=== PATIENT | male | born 1980 | race African-American/Black ===

== ENCOUNTER 2021-11-17 11:13 | Outpatient (CLI) | payer OTHER, SELFPAY | END 2021-11-22 13:50 | disposition home or self-care (01) | PROVIDERS: Family Provider Student in an Organized Health Care Education/Training Program; PCP Student in an Organized Health Care Education/Training Program; Referring Provider Student in an Organized Health Care Education/Training Program; Visit Provider Student in an Organized Health Care Education/Training Program | DX: G43.909 Migraine, unspecified, not intractable, without status migrainosus (principal); M25.569 Pain in unspecified knee; G47.33 Obstructive sleep apnea (adult) (pediatric); M79.2 Neuralgia and neuritis, unspecified | CPT/HCPCS: 95886; 95910 ==

== ENCOUNTER 2023-10-31 10:27 | Day surgery (SDC) | payer OTHER, SELFPAY ==
[2023-10-31 10:50] VITALS: BP 135/90; PULSE 76; RESP 18; TEMP 36.2; O2SAT 99
[2023-10-31] MEDS: LACTATED RINGERS 1,000 ML 42 ML IV (11:03)
--- NOTE | 2023-10-31 11:08 | PM.PREOP ---
Pre-operative Note COVID-19 COVID-19 status: Negative Interval Note History & Physical reviewed/Exam performed by Physician: Yes Changes to H&P: No H&P completed within 30 days and has changed as indicated here:: none ASA Class (for procedural sedation): II
--- NOTE | 2023-10-31 11:09 | PM.OP.EGD ---
Operative Date/Time/Diagnoses Date of procedure: 10/31/23 Pre-op diagnosis: See indication and findings Procedure & Clinicians Study performed: EGD Indications: Chronic cough rule out GERD Surgeon: Stevie Gordillo Procedure Notes Procedure in detail: After informed consent was obtained the patient was placed in the left lateral decubitus position. The video upper scope was placed into the oropharynx and with the patient's help swallowed into the esophagus. The esophagus stomach and duodenum were carefully examined. On withdrawal, retroflexed view the GE junction was performed. Scope was removed. The patient tolerated procedure well. Blood loss none Complications none Sedation mac Findings 1. Normal esophagus 2. Normal stomach 3. Normal duodenum Mr. Claros should neck see Pulmonary about his problems with coughing.
[2023-10-31 11:31] VITALS: BP 127/89; PULSE 79; RESP 12; TEMP 37.1; O2SAT 95
[2023-10-31 11:36] VITALS: BP 129/95; PULSE 78; RESP 12; O2SAT 100
[2023-10-31 11:41] VITALS: BP 132/99; PULSE 74; RESP 15; TEMP 36.6; O2SAT 100
== END 2023-10-31 12:01 | disposition home or self-care (01) ==
PROVIDERS: Family Provider Student in an Organized Health Care Education/Training Program; PCP Student in an Organized Health Care Education/Training Program; Referring Provider Internal Medicine Gastroenterology; Visit Provider Internal Medicine Gastroenterology
PROC: 0DJ08ZZ Inspection of Upper Intestinal Tract, Via Natural or Artificial Opening Endoscopic (ICD-10-PCS; CPT 43235; principal; 2023-10-31 13:30)
DX: R05.3 Chronic cough (principal)
CPT/HCPCS: 43235

== ENCOUNTER 2024-04-26 08:59 | Emergency (ER) | payer OTHER, SELFPAY ==
[2024-04-26 09:24] VITALS: BP 136/94; PULSE 74; RESP 16; TEMP 36.7; O2SAT 100; BMI 36.9
--- NOTE | 2024-04-26 09:42 | PC.NURSE ---
Pt woke up a couple days ago with stiff neck. right side Continued normal ADLs to include working out strenth training. States pain has progressively gotten worse and has spread to R shoulder. He reports radiation down to right hand. right arm feels heavy and has numbness tingling. pain 8/10. has tried heat, ibuprofen, his therapy masasge gun. Pt worsening sleep and pain.
--- NOTE | 2024-04-26 11:13 | ED.EXTPRO ---
HPI - Extremity Problem <Arlen Booth PA-C - Last Filed: 04/26/24 11:52> General Chief complaint: Extremity Problem,Nontraumatic Stated complaint: neck and shoulder px causing Rarm numbness Time Seen by Provider: 04/26/24 11:05 Source: patient Mode of arrival: Family Vehicle History of Present Illness HPI Narrative: This is a 44-year-old generally healthy patient presenting with concern for right arm numbness after he woke up about 3 days ago with pain in the right side of his neck and his right upper shoulder. Patient states that he does do heavy weightlifting and has done so for years, he does not believe he did anything different in his exercise routine or remember any specific injury or pain happening during exercise or any other activities prior to his pain starting. He states he has had somewhat similar symptoms in the past when he was in the and a few different times he says he has woken up and feel like I can not move my neck but had never had numbness affecting his right arm at that time. He feels his function has been normal and his strength has been normal. He states that he has a pain in his right arm that is slightly dull pain feeling-- however most of his pain is in his right upper shoulder. He has tried heat, ice, massage therapy Gun topical [id number] numbing medicine and OTC pain meds with limited improvement. He denies any headache, vision change, one-sided weakness or other symptoms. Related Data Previous Rx's Medication Instructions Recorded baclofen 20 mg tablet 20 mg PO TID 7 days #21 tabs 04/26/24 lidocaine 5 % topical ointment 1 applic topical TID PRN pain #50 04/26/24 grams prednisone 20 mg tablet 40 mg (2 x 20 mg) PO DAILY 5 days 04/26/24 #10 tabs Allergies Allergy/AdvReac Type Severity Reaction Status Date / Time No Known Drug Allergies Allergy Verified 10/31/23 11:04 Review of Systems <Arlen Booth PA-C - Last Filed: 04/26/24 11:52> Review of Systems Narrative: see HPI Patient History <Arlen Booth PA-C - Last Filed: 04/26/24 11:52> Social History Smoking Status: Never smoker alcohol intake: never Smoking Status: Never smoker Exam <Arlen Booth PA-C - Last Filed: 04/26/24 11:52> Narrative Exam Narrative: GENERAL: [44] year old patient appears stated age. Well-developed Muscular patient, in mild distress. HEAD: Atraumatic. Normocephalic. EYES: Pupils equal round and reactive. Extraocular motions intact. No scleral icterus. No injection or drainage. ENT: Nose without bleeding, purulent drainage. Airway patent. NECK: Trachea midline. Non tender CARDIOVASCULAR: Regular rate and rhythm without murmurs, gallops, or rubs. RESPIRATORY: Clear to auscultation. Breath sounds equal bilaterally. No wheezes, rales, or rhonchi. EXTREMITIES: strength and range of motion are intact at the shoulder elbow wrist hand and fingers on the affected right arm. Patient does have increased pain of the right trapezius / superior shoulder with active ROM. Negative empty can test negative scarf sign pronation supination intact. Strong radial pulse, cap refill less than 2 seconds.No edema or joint tenderness. BACK: There is no midline spinous process tenderness deformity or step-off. There is mild paraspinal tenderness over the trapezius on the right. There is significant tenderness with visible swelling / inflammation over the trapezius on the superior aspect of the shoulder. There is no erythema fluctuance or induration present. Nontender without deformity or crepitance. No flank tenderness. NEURO: AOx3. SKIN: No rash or erythema of visible areas Initial Vital Signs Initial Vital Signs: Vital Signs Temperature 98.1 F 04/26/24 09:24 Pulse Rate 74 04/26/24 09:24 Respiratory Rate 16 04/26/24 09:24 Blood Pressure 136/94 H 04/26/24 09:24 Pulse Oximetry 100 04/26/24 09:24 Oxygen Delivery Method Room Air 04/26/24 09:24 <Sabra Villegas DO - Last Filed: 04/26/24 19:35> Initial Vital Signs Initial Vital Signs: Vital Signs Temperature 98.1 F 04/26/24 09:24 Pulse Rate 74 04/26/24 09:24 Respiratory Rate 16 04/26/24 09:24 Blood Pressure 136/94 H 04/26/24 09:24 Pulse Oximetry 100 04/26/24 09:24 Oxygen Delivery Method Room Air 04/26/24 09:24 Course <Arlen Booth PA-C - Last Filed: 04/26/24 11:52> Vital Signs Vital signs: Vital Signs - 8 hr 04/26/24 11:47 04/26/24 11:47 Temperature 98.0 F Pulse Rate 69 Blood Pressure 146/98 H Pulse Oximetry 100 Oxygen Delivery Method Room Air <Sabra Villegas DO - Last Filed: 04/26/24 19:35> Vital Signs Vital signs: Vital Signs - 8 hr 04/26/24 11:47 04/26/24 11:47 Temperature 98.0 F Pulse Rate 69 Blood Pressure 146/98 H Pulse Oximetry 100 Oxygen Delivery Method Room Air MDM - Extremity (Nontraumatic) <Arlen Booth PA-C - Last Filed: 04/26/24 11:52> Differential Diagnosis Differential diagnosis: Likely other ( Muscle strain, sprain, radiculopathy, muscle spasm) MDM Narrative Medical decision making narrative: This is a generally healthy 44-year-old male presenting with concern for right arm numbness sensation that has gradually progressed after he woke up with right-sided neck and shoulder pain 2 days ago with no injury. His exam is notable for pronounced inflammation/ swelling of the right trapezius lateral to the right neck. I have no concern for cardiovascular etiology, Or CVA, based on the patient's exam and history. He had no specific known injuries. We did discuss obtaining imaging however pt does not feel strongly about this and also feel this is not warranted at this time as he has no midline spinous process tenderness and sustained no known injury. Prescription for prednisone, baclofen, topical lidocaine. We also discussed referral to physical therapy however patient will plan to follow up with his primary care provider and consider seeing PT if his symptoms are not improving within 7-10 days. Patient was advised to avoid heavy weightlifting until his symptoms resolve. Return precautions provided, follow-up plan discussed, all questions answered. Discharge Plan Departure Patient Disposition: Home Clinical Impression: Muscle spasm of shoulder region, Radiculopathy affecting upper extremity Strain of right trapezius muscle Qualifiers: Encounter type: initial encounter Qualified Code(s): S46.811A - Strain of other muscles, fascia and tendons at shoulder and upper arm level, right arm, initial encounter Activity Restrictions/Additional Instructions: *You have been diagnosed with [Strain of right trapezius muscle, muscle spasm, and radiculopathy ] *What to do: *Please continue to take your regular medications as directed. [ 3] New medication prescriptions sent to your pharmacy: [ baclofen, lidocaine topical, prednisone] [ ] New medication written as a paper prescription [ ] No new medications given *Please follow up with your primary care provider in 2-3 days, call for an appointment. Let them know you were seen in the Emergency Department and that we ask that you be seen in follow up. We will electronically transmit a record of today's note if your PCP is in our system. your exam today is consistent with radiculopathy / muscle strain and spasm of her trapezius muscle in her shoulder. Steroid medication should help to reduce inflammation, and baclofen will be helpful for muscle relaxer/spasming. Please do not take the baclofen along with alcohol or before driving or operating any heavy equipment. If you do not feel you are improving in 7 today 10 days after symptoms start or worsening please make sure you seek re-evaluation. It can take up to about 3 weeks for strains to resolve completely. You may want to consider physical therapy if you feel things are not improving despite measures of care. Please avoid your regular heavy lifting workout routine until your symptoms have resolved. *If you do not have a primary care provider please contact the [facility] Resource line at [phone]. They will ask some questions about your medical history and help get you set up with a doctor in the community. *Return to Emergency Department if you should have any new, worsening or concerning symptoms, such as [fever greater than 101 F, shaking chills, worsening pain, persistent vomiting or other bothersome symptoms] Prescriptions: New prednisone 20 mg tablet 40 mg PO DAILY 5 Days Qty: 10 0RF baclofen 20 mg tablet 20 mg PO TID 7 Days Qty: 21 0RF lidocaine 5 % ointment 1 applic topical TID PRN (Reason: pain) Qty: 50 1RF Referrals: Cal Joya MD [Primary Care Provider] - Stand Alone Forms: Patient Portal/API/Survey ED Sign-out <Sabra Villegas DO - Last Filed: 04/26/24 19:35> Cosign ED Attending Nikhilature Attestation: I was immediately available in the department for consultation.
[2024-04-26 11:47] VITALS: BP 146/98; PULSE 69; TEMP 36.7; O2SAT 100
== END 2024-04-26 11:53 | disposition home or self-care (01) ==
PROVIDERS: Emergency Provider Student in an Organized Health Care Education/Training Program; Family Provider Student in an Organized Health Care Education/Training Program; PCP Student in an Organized Health Care Education/Training Program
DX: M62.838 Other muscle spasm (principal); M54.10 Radiculopathy, site unspecified; S46.811A Strain of other muscles, fascia and tendons at shoulder and upper arm level, right arm, initial encounter; X58.XXXA Exposure to other specified factors, initial encounter
CPT/HCPCS: 99281

== ENCOUNTER 2024-07-07 07:33 | Emergency (ER) | payer OTHER, SELFPAY ==
[2024-07-07 08:04] VITALS: BP 150/102; PULSE 74; RESP 16; TEMP 36.6; O2SAT 100; BMI 36.9
--- NOTE | 2024-07-07 08:14 | DI.CT.S_ITS ---
PROCEDURE: CT HEAD/BRAIN WO CON INDICATIONS: headache, facial droop only TECHNIQUE: Noncontrast 4.5 mm thick angled axial sections acquired from the foramen magnum to the vertex, with coronal and sagittal reformats. For radiation dose reduction, the following was used: automated exposure control, adjustment of mA and/or kV according to patient size. COMPARISON: None. FINDINGS: Image quality: Diagnostic. CSF spaces: Basal cisterns are patent. No extra-axial fluid collections. Ventricles are normal in size and shape. Brain: No midline shift. No intracranial masses or hemorrhage. Metzger-white matter interface is normal. Skull and face: Calvarium and visualized facial bones are intact, without suspicious lesions. Sinuses: Visualized sinuses and mastoids are clear. IMPRESSION: No acute intracranial pathology. Dictated by: Macho Hunt M.D. on 07/07/2024 at 8:28 Approved by: Macho Hunt M.D. on 07/07/2024 at 8:28
--- NOTE | 2024-07-07 08:15 | ED.NEUROSD ---
HPI - Neuro Symptoms/Deficit General Chief Complaint: Neuro Symptoms/Deficit Stated Complaint: L side of face numbness not making movement Time Seen by Provider: 07/07/24 08:05 Source: patient, RN notes reviewed and old records reviewed Limitations: no limitations History of Present Illness HPI Narrative: 44-year-old male history of hypertension presents with complaint of noticing left-sided facial numbness and weakness describes as upper and lower face. Patient states he did not notice any issues last night when he went to sleep woke up this morning was washing his face and noticed his eye getting water in it and then when he tried to use his mouth wash it kept coming out and then realize his face looked a little bit asymmetrical. His at bedside also notes left upper and lower face seemed to have same movement. Notes he has had some headaches he does get headaches fairly regularly is adamant little bit more frequently this week. Describes it as left posterior. Patient states no vision changes, other than a numbness sensation of the face and difficulty with movement he denies any other numbness, tingling or weakness of his body or extremities. No difficulty with movement. No fevers or chills, no chest pain or shortness of breath, no other GI or urinary symptoms. Patient has not had similar in the past. Patient states he takes an antihypertensive as his only daily medication. No known drug allergies. No tobacco, occasional alcohol, no recreational drug use. Patient does not currently have a primary care physician. On Anticoagulants: No Related Data Previous Rx's Medication Instructions Recorded lidocaine 5 % topical ointment 1 applic topical TID PRN pain #50 04/26/24 grams erythromycin 5 mg/gram (0.5 %) eye 0.5 inch EYE-LEFT QID #3.5 grams 07/07/24 ointment prednisone 10 mg tablets in a dose See Rx Instructions PO .COMPLEX 07/07/24 pack #45 ea valacyclovir 1 gram tablet 1,000 mg PO TID 7 days #21 tabs 07/07/24 Allergies Allergy/AdvReac Type Severity Reaction Status Date / Time No Known Drug Allergies Allergy Verified 10/31/23 11:04 Review of Systems Review of Systems ROS Unobtainable: All systems reviewed & are unremarkable except as noted in HPI and below Hematologic/Lymphatic On Anticoagulants: No Patient History Social History Smoking Status: Never smoker alcohol intake: never Smoking Status: Never smoker Exam Narrative Exam Narrative: GEN: well nourished, well appearing found, alert and oriented x 3, patient appears to be in mild distress. HEENT: Atraumatic, pupils are equal round reactive to light, extraocular movements are intact, nares are clear, TMs are clear with no fluid, there is no conjunctival pallor. Throat is clear without any exudates, erythema, tonsillar enlargement or uvular deviation, patient has mild facial droop of the left brow with decreased movement, has decreased strength when attempting to keep his eye shut against resistance. Patient has droop in the nasal labial fold. Has decreased sensation upper and left lower face. No dysarthria, no aphasia. HEART: Regular rate and rhythm without murmur, clicks, rubs. No carotid bruits, pulses are equal in upper and lower extremities LUNGS:Lungs clear to auscultation, no wheezes, rales, crackles, chest moves symmetrically ABD:bowel sounds normal, soft, non-tender, no guarding, rebound, rigidity, no masses noted, no hepatosplenomegaly MSCL: Non-tender, no muscle atrophy, muscles strength 5/5 upper and lower extremities, full range of motion, normal gait NEURO:CN 2-12 intact, sensation normal, reflexes 2/4 upper and lower extremities. finger nose finger test normal, heel casiano test normal. SKIN: No rash, erythema or other skin changes Initial Vital Signs Initial Vital Signs: Vital Signs Temperature 97.8 F 07/07/24 08:04 Pulse Rate 74 07/07/24 08:04 Respiratory Rate 16 07/07/24 08:04 Blood Pressure 150/102 H 07/07/24 08:04 Pulse Oximetry 100 07/07/24 08:04 Oxygen Delivery Method Room Air 07/07/24 08:04 Course Orders Ordered: ED Orders 07/07/24 08:14 CT head/brain wo con Stat Vital Signs Vital signs: Vital Signs - 8 hr 07/07/24 08:04 Temperature 97.8 F Pulse Rate 74 Respiratory Rate 16 Blood Pressure 150/102 H Pulse Oximetry 100 Oxygen Delivery Method Room Air MDM - Neuro Symptoms/Deficit MDM Narrative Medical decision making narrative: 44-year-old male presents with isolated left-sided facial numbness and weakness 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 Has a history of hypertension but no other reported medical issues has not had similar in the past. Discussed with the patient we will obtain head CT as he was has a history of headaches and notes it on the left side same as his symptoms. Suspicion for acute stroke is quite low. Head CT is negative. Report was not crossing over but spoke with Radiology, Dr. Ferguson to confirm read. We will initiate prednisone, antiviral, patient does not own a little bit of eye irritation so we will start with eye protection discussed patient's stood tape is closed at nighttime or use an eye patch. Discharge Plan Departure Patient Disposition: Home Clinical Impression: Jerry's palsy Instructions: DI for [place] Palsy Activity Restrictions/Additional Instructions: Follow up with primary care and/or ENT for re-evaluation. Jerry's palsy we will typically resolve over several weeks but a small number can persist. Contacts included to follow up if you notice it is not improving. Take steroids and antivirals until completed. You can use saline eye drops to the left eye as needed during the day. I would recommend either an eye patch or taping your eye shut at night to keep it moist. You can use small amount of the antibiotic ointment for the eye 3 times daily if needed. Prescription sent to [facility] in [place]. Please return for fevers, any new or changing symptoms, any new numbness, tingling or weakness in your extremities, any difficulty with speech or movement or other new or concerning changes. Prescriptions: New prednisone 10 mg tablets,dose pack See Rx Instructions .ROUTE .COMPLEX Qty: 45 0RF Rx Instructions: Take 60 mg p.o. daily x5 days then 50 mg p.o. x1 day, then 40 mg p.o. x1 day, and 30 mg p.o. x1 day then 20 mg p.o. x1 day then 10 mg p.o. x1 day valacyclovir 1 gram tablet 1,000 mg PO TID 7 Days Qty: 21 0RF erythromycin 5 mg/gram (0.5 %) ointment 0.5 inch EYE-LEFT QID Qty: 3.5 0RF No Action lidocaine 5 % ointment 1 applic topical TID PRN (Reason: pain) Qty: 50 1RF Referrals: Cal Joya MD [Primary Care Provider] - Duke Brian MD [Physician] - Stand Alone Forms: Patient Portal/API/Survey
[2024-07-07 09:27] VITALS: BP 154/110; PULSE 68; RESP 16; TEMP 36.9; O2SAT 98
== END 2024-07-07 09:29 | disposition home or self-care (01) ==
PROVIDERS: Emergency Provider Emergency Medicine; Family Provider Student in an Organized Health Care Education/Training Program; PCP Student in an Organized Health Care Education/Training Program
DX: G51.0 Bell's palsy (principal); I10 Essential (primary) hypertension
CPT/HCPCS: 70450; 99284